=== PATIENT | male | born 1955 | race Caucasian/White ===

== ENCOUNTER 2020-05-12 09:39 | Emergency (ER) | payer OTHER ==
[2020-05-12] MEDS ORDERED: [UNRECOGNIZED DRUG - OTHER] PO (12:10)
[2020-05-12] MEDS ORDERED: MEDROL DOSEPAK 24 MG PO (12:10)
[2020-05-12] MEDS ORDERED: Voltaren Gel 1% TOP (12:10)
== END 2020-05-12 12:35 | disposition home or self-care (01) ==
LOC: ER1 09:39
DX: S16.1XXA Strain of muscle, fascia and tendon at neck level, initial encounter (principal); S46.912A Strain of unspecified muscle, fascia and tendon at shoulder and upper arm level, left arm, initial encounter; M50.323 Other cervical disc degeneration at C6-C7 level; I10 Essential (primary) hypertension; V47.9XXA Unspecified car occupant injured in collision with fixed or stationary object in traffic accident, initial encounter
CPT/HCPCS: 72125; 73030; 99284

== ENCOUNTER 2021-01-14 22:25 | Emergency (ER) | payer BC ==
[~2021-01-14 22:25] MED LIST: MEDROL DOSEPAK 24 MG PO; Voltaren Gel 1% TOP; [UNRECOGNIZED DRUG - OTHER] PO
[2021-01-15] MEDS ORDERED: PREDNISONE50 MG PO (01:27)
[2021-01-15] MEDS ORDERED: BENADRYL25 MG PO (01:27)
[2021-01-15] MEDS ORDERED: PEPCID40 MG PO (01:27)
== END 2021-01-15 01:40 | disposition home or self-care (01) ==
LOC: ER1 22:25
DX: T78.1XXA Other adverse food reactions, not elsewhere classified, initial encounter (principal)
CPT/HCPCS: 96374; 99283; J2930